=== PATIENT | female | born 1960 | race Caucasian/White ===

== ENCOUNTER 2016-06-14 19:47 | Inpatient (IN) | payer SELFPAY ==
[~2016-06-14] VITALS: Ht 160 cm; Wt 73.0 kg
[2016-06-14 20:03] VITALS: BP 147/88; PULSE 89; RESP 18; TEMP 97.8; O2SAT 95
[2016-06-14] MEDS ORDERED: ONDANSETRON HCL 4 MG/2 ML VIAL IVP ONE (21:00)
[2016-06-14] MEDS ORDERED: SODIUM CHLORIDE 0.9% FLUSH 5 ML FLUSH IVF PRN ×3 (21:00→23:45)
--- NOTE | 2016-06-14 21:03 | PD ---
HPI Chief Complaint: Headache Time Seen by Provider: 20:55 Travel History International Travel<30 days: No Contact w/Intl Traveler<30days: No Traveled to known affect area: No History of Present Illness HPI 56-year-old female presents to the emergency department by private transportation the care of her family for evaluation of headache. Patient had sudden onset severe headache since Monday evening. Headache has been persistent with associated nausea without vomiting. Patient also notes that has developed neck stiffness. Patient states family history of cerebral aneurysm in her mother who underwent successful surgery and her aunt who secondary to bleed. Patient has had no evaluation for cerebral aneurysm with positive family history. Patient denies any chronic medical conditions although occasional migrainous headache but denies frequent tension headache or other headache. Patient does smoke cigarettes and uses [id number] herbal medications. Patient denies any change in mentation but reportedly today children at home noted that she had some mild slurring of her speech which resolved completely. Patient denies any visual disturbance loss of vision double vision denies any difficulty with swallowing denies any upper extremity or lower extremity numbness tingling or weakness of the extremities. Patient has had no balance disturbance. Patient denies any recent febrile illness or respiratory illness. Patient's had poor oral intake due to associated nausea. Patient has missed work 2 days. Patient has used [id number] aspirin and ibuprofen without symptom relief. Patient rates pain "20"/10 in intensity. PFSH Past Medical History Narrative Medical occasional migrainous headaches AB/ectopic 1; 3; tobacco use positive; family history cerebral aneurysm mother and maternal aunt; nursing notes reviewed Diminished Hearing: No Tetanus Vaccination: Unknown Influenza Vaccination: No ?: Not Tubal Ligation: Yes Past Surgical History Section: Yes (x3) Social History Alcohol Use: No Tobacco Use: Yes (1 PPD) Substance Use: No Allergies-Medications (Allergen,Severity, Reaction): Coded Allergies: No Known Allergies (Unverified , 06/14/16) Reported Meds & Prescriptions Reported Meds & Active Scripts Active Reported Ginkoba (Ginkgo Biloba) [address] [place] Wort (Génesis's Wort ([place]f) 150 Mg Tab 150 Mg PO DAILY Narrative Medication génesis's wort Review of Systems Except as stated in HPI: all other systems reviewed are Neg General / Constitutional: No: Fever, Chills Eyes: No: Diploplia, Blurred Vision, Photophobia HENT: Positive: Headaches, Neck Stiffness Cardiovascular: No: Chest Pain or Discomfort, Palpitations Respiratory: No: Shortness of Breath Gastrointestinal: Positive: Nausea, No: Vomiting, Abdominal Pain Genitourinary: No: Flank Pain Musculoskeletal: No: Myalgias, Arthralgias Skin: No Rash Neurologic: Positive: Headache, Slurred Speech (transient --resolved), No: Weakness, Dizziness, Syncope, Focal Abnormalities, Coordination Problem, Change in Mentation, Paresthesia, Seizures Psychiatric: No: Anxiety Endocrine: No: Heat Intolerance Hematologic/Lymphatic: No: Easy Bruising Physical Exam Narrative GENERAL: Well-developed well-nourished female in no acute distress no respiratory distress; GCS 15 SKIN: Warm and dry. HEAD: Atraumatic. Normocephalic. EYES: Pupils equal and round. Extraocular muscles intact. No scleral icterus. No injection or drainage. ENT: No nasal bleeding or discharge. Mucous membranes pink and moist. NECK: Trachea midline. No JVD. Mild discomfort with range of motion but no meningismus no nuchal rigidity. CARDIOVASCULAR: Regular rate and rhythm. RESPIRATORY: No accessory muscle use. Clear to auscultation. Breath sounds equal bilaterally. GASTROINTESTINAL: Abdomen soft, non-tender, nondistended. Hepatic and splenic margins not palpable. MUSCULOSKELETAL: Extremities without clubbing, cyanosis, or edema. No obvious deformities. NEUROLOGICAL: Awake and alert. No obvious cranial nerve deficits. Motor grossly within normal limits. Five out of 5 muscle strength in the arms and legs. DTRs 2+ and equal bilateral upper extremities and lower extremities no clonus. Sensory exam intact. No limb ataxia. No pronator drift. Normal speech. PSYCHIATRIC: Appropriate mood and affect; insight and judgment normal. Data Data Last Documented VS Vital Signs Date Time Temp Pulse Resp B/P Pulse Ox O2 Delivery O2 Flow Rate FiO2 06/15/16 00:06 98.0 79 18 140/87 95 Room Air Orders Complete Blood Count With Diff (06/14/16 20:55) Basic Metabolic Panel (Bmp) (06/14/16 20:55) Prothrombin Time / Inr (Pt) (06/14/16 20:55) Act Partial Throm Time (Ptt) (06/14/16 20:55) Ct Brain W/O Iv Contrast(Rout) (3/7/17 20:55) Ecg Monitoring (06/14/16 20:55) Iv Access Insert/Monitor (06/14/16 20:55) Oximetry (06/14/16 20:55) Sodium Chloride 0.9% Flush (Ns Flush) (06/14/16 21:00) Ondansetron Inj (Zofran Inj) (06/14/16 21:00) Morphine Inj (Morphine Inj) (06/14/16 22:45) Sodium Chlor 0.9% 1000 Ml Inj (Ns 1000 M (06/14/16 22:45) Sodium Chlor 0.9% 250 Ml Inj (Ns 250 Ml (06/14/16 22:45) Csf Cell Count + Differential (06/14/16 23:43) Glucose, Csf (06/14/16 23:43) Total Protein, Csf (06/14/16 23:43) Csf Culture And Gram Stain (06/14/16 23:43) Sodium Chloride 0.9% Flush (Ns Flush) (06/14/16 23:45) Cta Brain W Iv Contrast W 3d (06/14/16 23:43) Sodium Chloride 0.9% Flush (Ns Flush) (06/14/16 23:45) Ondansetron Inj (Zofran Inj) (06/15/16 00:45) Morphine Inj (Morphine Inj) (06/15/16 00:45) Sodium Chlor 0.9% 1000 Ml Inj (Ns 1000 M (06/15/16 00:45) Cta Neck W Iv Contrast W 3d (06/15/16 00:51) Blood Culture (06/15/16 00:59) Lactic Acid (06/15/16 00:59) Ceftriaxone Inj (Rocephin Inj) (06/15/16 01:00) Acyclovir Inj (Zovirax Inj) (06/15/16 01:00) Place In Observation (06/15/16 ) Vital Signs (Adult) Q4H (06/15/16 01:09) Neuro Checks Q4H (06/15/16 01:09) Activity Oob With Assistance (06/15/16 01:09) Diet Heart Healthy (06/15/16 Breakfast) Sodium Chloride 0.9% Flush (Ns Flush) (06/15/16 01:15) Sodium Chloride 0.9% Flush (Ns Flush) (06/15/16 09:00) Basic Metabolic Panel (Bmp) (06/16/16 06:00) Complete Blood Count With Diff (06/16/16 06:00) Case Management Consult (06/15/16 01:09) Naloxone Inj (Narcan Inj) (06/15/16 01:15) Vancomycin Inj (Vancomycin Inj) (06/15/16 01:15) Vancomycin Consult Pharmacy (Vancomycin (06/15/16 01:15) Admit Order (Ed Use Only) (06/15/16 ) ^ Saline Lock (06/15/16 01:11) Resp Oxygen Ethan C Titrat 1-4 L (06/15/16 ) ^ Notify Dr: Other (06/15/16 01:11) Sodium Chloride 0.9% Flush (Ns Flush) (06/15/16 09:00) Sodium Chloride 0.9% Flush (Ns Flush) (06/15/16 01:15) Ampicillin Inj (Ampicillin Inj) (06/15/16 03:00) Ceftriaxone Inj (Rocephin Inj) (06/15/16 13:00) Labs Laboratory Tests Test 06/14/16 06/14/16 06/15/16 20:40 23:40 01:13 White Blood Count 9.2 TH/MM3 Red Blood Count 5.55 MIL/MM3 Hemoglobin 17.3 GM/DL Hematocrit 52.0 % Mean Corpuscular Volume 93.6 FL Mean Corpuscular Hemoglobin 31.2 PG Mean Corpuscular Hemoglobin 33.3 % Concent Red Cell Distribution Width 13.4 % Platelet Count 228 TH/MM3 Mean Platelet Volume 9.3 FL Neutrophils (%) (Auto) 68.7 % Lymphocytes (%) (Auto) 21.7 % Monocytes (%) (Auto) 7.7 % Eosinophils (%) (Auto) 1.3 % Basophils (%) (Auto) 0.6 % Neutrophils # (Auto) 6.3 TH/MM3 Lymphocytes # (Auto) 2.0 TH/MM3 Monocytes # (Auto) 0.7 TH/MM3 Eosinophils # (Auto) 0.1 TH/MM3 Basophils # (Auto) 0.1 TH/MM3 CBC Comment DIFF FINAL Differential Comment Prothrombin Time 11.4 SEC Prothromb Time International 1.0 RATIO Ratio Activated Partial 31.8 SEC Thromboplast Time Sodium Level 140 MEQ/L Potassium Level 3.8 MEQ/L Chloride Level 106 MEQ/L Carbon Dioxide Level 24.4 MEQ/L Anion Gap 10 MEQ/L Blood Urea Nitrogen 15 MG/DL Creatinine 0.67 MG/DL Estimat Glomerular Filtration 91 ML/MIN Rate Random Glucose 100 MG/DL Calcium Level 9.0 MG/DL CSF Volume (Tube 1) 1.8 ML CSF Supernatant Color (tube 1) HEMOLYZED CSF Gross Blood (Tube 1) TRACE CSF Volume (Tube 2) 1.9 ML CSF Supernatant Color (tube 2) CLEAR CSF Gross Blood (Tube 2) 0 CSF Volume (Tube 3) 1.8 ML CSF Supernatant Color (tube 3) CLEAR CSF Gross Blood (Tube 3) 0 CSF Volume (Tube 4) 1.4 ML CSF Supernatant Color (tube 4) CLEAR CSF Gross Blood (Tube 4) 0 CSF WBC (Tube 4) 747 /MM3 CSF RBC (Tube 4) 10 /MM3 CSF Neutrophils 0 % CSF Lymphocytes 93 % CSF Monocytes 5 % CSF Eosinophils 1 % CSF Basophils 1 % CSF Glucose 43 MG/DL CSF Total Protein 270.1 MG/DL Lactic Acid Level 0.5 mmol/L MDM Medical Decision Making Medical Screen Exam Complete: Yes Emergency Medical Condition: Yes Medical Record Reviewed: Yes Interpretation(s) Last Impressions Neck CTA 06/15/16 005 Signed Impressions: Service Date/Time: Wednesday, June 15, 2016 01:33 - CONCLUSION: 1. Cervical vessels are all patent with no significant atherosclerotic disease. 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 Patient is left vertebral dominant. . Colin Damico MD Head CTA 06/14/16 [id number] Signed Impressions: Service Date/Time: Wednesday, June 15, 2016 01:33 - CONCLUSION: 1. Intracranial vessels are all patent without aneurysmal disease. 2. Congenital variation of the posterior Circulation and [place] as above. Colin Damico MD Head CT 06/14/[id number] Signed Impressions: Service Date/Time: Tuesday, June 14, 2016 21:51 - CONCLUSION: Negative noncontrast head CT. 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 At 10:[address] brain noncontrast has been resulted as no acute abnormality no bleed; they will agree to proceed with lumbar puncture. Patient continues to complain of headache pain and administered morphine sulfate after obtaining written and verbal consent to proceed with lumbar puncture and maintenance IV fluids has artery received Zofran 2 mg IV Critical Care Narrative Aggregate critical care time was 40 minutes. Time to perform other separately billable procedures was not included in the critical care time. My time did not include minutes spent treating any other patients simultaneously or on activities that did not directly contribute to the patient's treatment. The services I provided to this patient were to treat and/or prevent clinically significant deterioration that could result in: Intracranial bleed, sepsis, shock, I provided critical care services requiring my management, as noted below: Chart data review, documentation time, medication orders and management, vital sign assessments/reviewing monitor data, ordering and reviewing lab tests, ordering and interpreting/reviewing x-rays and diagnostic studies, care of the patient and discussion of the patient with the admitting physicians. Procedures Procedure Narrative LUMBAR PUNCTURE: The patient was placed in the left lateral decubitus position. The lumbar area of the back was prepped with Betadine and sterilely draped. The L3 -- L4 interspace was infiltrated with 1% lidocaine plain. Number 20 gauge LP needle was placed in the interspace. Opening pressure deferred. Number 7 milliliters of pink tinged that cleared to clear CSF were obtained. Patient tolerated procedure well. Physician Communication Physician Communication parul discussed with Dr Tillman for admission Diagnosis Primary Impression: Cephalgia Qualified Code: G44.52 - New daily persistent headache Additional Impression: Meningitis Admitting Information Admitting Physician Requests: Admit Cari Styles MD Jun 14, 2016 21:03
[2016-06-14 21:10] LABS: AUTOMATED NEUTROPHIL # 6.3 TH/MM3 (1.8-7.7); BASOPHIL # 0.1 TH/MM3 (0-0.2); BASOPHIL % 0.6 % (0.0-2.0); EOSINOPHIL # 0.1 TH/MM3 (0-0.4); EOSINOPHIL % 1.3 % (0.0-4.0); HEMO FLAGS DIFF FINAL; LYMPH % 21.7 % (9.0-44.0); MEAN CELL VOLUME 93.6 FL (80.0-100.0); MEAN CORPUSCULAR HEMOGLOBIN 31.2 PG (27.0-34.0); MEAN CORPUSCULAR HGB CONC 33.3 % (32.0-36.0); MONO % 7.7 % (0.0-8.0); NEUT % 68.7 % (16.0-70.0); PLATELET COUNT 228 TH/MM3 (150-450); RED BLOOD COUNT 5.55 MIL/MM3 (4.00-5.30); RED CELL DISTRIBUTION WIDTH 13.4 % (11.6-17.2); WHITE BLOOD COUNT 9.2 TH/MM3 (4.0-11.0)
[2016-06-14 21:17] LABS: POTASSIUM 3.8 MEQ/L (3.5-5.1)
[2016-06-14 21:20] LABS: BICARBONATE 24.4 MEQ/L (21.0-32.0)
[2016-06-14 21:22] LABS: APTT (PATIENT) 31.8 SEC (24.3-30.1); PROTHROMBIN TIME - PATIENT 11.4 SEC (9.8-11.6)
--- NOTE | 2016-06-14 22:16 | RADHPO ---
EXAM DATE/TIME: 06/14/2016 21:51 [facility] COMPARISON: No previous studies available for comparison. INDICATIONS : Cephalgia. Slurred speech. RADIATION DOSE: 60.19 CTDIvol (mGy) MEDICAL HISTORY : None SURGICAL HISTORY : None. ENCOUNTER: Initial ACUITY: 1 day PAIN SCALE: 10/10 LOCATION: Bilateral cranial TECHNIQUE: Multiple contiguous axial images were obtained of the head. Using automated exposure control and adj ustment of the mA and/or kV according to patient size, radiation dose was kept as low as reasonably a chievable to obtain optimal diagnostic quality images. FINDINGS: CEREBRUM: The ventricles are normal for age. No evidence of midline shift, mass lesion, hemorrhage or acute in farction. No extra-axial fluid collections are seen. POSTERIOR FOSSA: The cerebellum and brainstem are intact. The 4th ventricle is midline. The cerebellopontine angle i s unremarkable. EXTRACRANIAL: The visualized portion of the orbits is intact. SKULL: The calvaria is intact. No evidence of skull fracture. CONCLUSION: Negative noncontrast head CT. Maciel Rm MD on June 14, 2016 at 22:14 Board Certified Radiologist. This report was verified electronically.
[2016-06-14] MEDS ORDERED: SODIUM CHLOR 0.9% 250 ML INJ 250 ML IV ONE (22:45)
[2016-06-14] MEDS ORDERED: MORPHINE SULFATE 4 MG/ML INJ IV PUSH ONE (22:45)
[2016-06-14] MEDS: SODIUM CHLOR 0.9% 1000 ML INJ 1,000 ML IV SCH (22:49)
[2016-06-14 23:45] VITALS: O2SAT 100; O2SAT 94
[2016-06-15] VITALS (22 sets, daily range): BP systolic 110–140; BP diastolic 61–87; PULSE 62–85; RESP 15–25; TEMP 97.6–99; O2SAT 88–96
[2016-06-15 00:31] LABS: VOLUME TUBE # 1 1.8 ML
[2016-06-15 00:34] LABS: SUPERNATE COLOR TUBE #1 HEMOLYZED (CLEAR)
[2016-06-15] MEDS ORDERED: SODIUM CHLOR 0.9% 1000 ML INJ 1,000 ML IV ONE (00:45)
[2016-06-15] MEDS ORDERED: MORPHINE SULFATE 4 MG/ML INJ IV PUSH ONE ×2 (00:45→07:30)
[2016-06-15] MEDS ORDERED: ONDANSETRON HCL 4 MG/2 ML VIAL IV PUSH ONE (00:45)
[2016-06-15 00:51] LABS: GROSS BLOOD TUBE #1 TRACE (0)
[2016-06-15 00:52] LABS: GROSS BLOOD TUBE #2 0 (0); SUPERNATE COLOR TUBE #2 CLEAR (CLEAR); VOLUME TUBE # 2 1.9 ML
[2016-06-15 00:53] LABS: GROSS BLOOD TUBE #3 0 (0); SUPERNATE COLOR TUBE #3 CLEAR (CLEAR); VOLUME TUBE # 3 1.8 ML; VOLUME TUBE # 4 1.4 ML
[2016-06-15 00:54] LABS: GROSS BLOOD TUBE #4 0 (0); SUPERNATE COLOR TUBE #4 CLEAR (CLEAR)
[2016-06-15 00:55] LABS: WBC TUBE #4 747 /MM3 (0-10)
[2016-06-15] MEDS ORDERED: ACYCLOVIR INJ 500 MG in SODIUM CHLORIDE 0.9% INJ 100 ML IV ONE (01:00)
[2016-06-15] MEDS ORDERED: cefTRIAXone INJ 2,000 MG in SODIUM CHLORIDE 0.9% INJ 100 ML IV ONE (01:00)
[2016-06-15] MEDS ORDERED: VANCOMYCIN INJ 1,000 MG in SODIUM CHLOR 0.9% 250 ML INJ 250 ML IV ONE (01:15)
[2016-06-15] MEDS ORDERED: SODIUM CHLORIDE 0.9% FLUSH 5 ML FLUSH FLUSH PRN (01:15)
[2016-06-15] MEDS ORDERED: NALOXONE HCL 0.4 MG/ML AMP IV PRN (01:15)
[2016-06-15] MEDS ORDERED: Vancomycin Consult Pharmacy 1 EA OTHER SCH (01:15)
[2016-06-15] MEDS ORDERED: SODIUM CHLORIDE 0.9% FLUSH 5 ML FLUSH IVF PRN (01:15)
[2016-06-15 01:26] LABS: CSF EOSINOPHILS 1 %; CSF LYMPHOCYTES 93 %; CSF MONOCYTES 5 %; CSF NEUTROPHILS 0 %
[2016-06-15] MEDS ORDERED: ST J150T PO (01:31)
[2016-06-15] MEDS ORDERED: GINK40TA2 (01:32)
[2016-06-15] MEDS ORDERED: IOHEXOL 350 MG/ML 10 ML VIAL (for RAD DIAG) IV ONE (02:30)
--- NOTE | 2016-06-15 02:48 | RADHPO ---
EXAM DATE/TIME: 06/15/2016 01:33 [facility] COMPARISON: No previous studies available for comparison. INDICATIONS : Evaluate for aneurysm. Slurred speech. Cephalgia. IV CONTRAST: 100 cc Omnipaque 350 (iohexol) IV ; Cumulative dose for multiple exams. RADIATION DOSE: 13.30 CTDIvol (mGy) ; Combined studies MEDICAL HISTORY : None SURGICAL HISTORY : None. ENCOUNTER: Initial ACUITY: 1 day PAIN SCALE: 8/10 LOCATION: Bilateral cranial TECHNIQUE: Volumetric scanning was performed using a multi-row detector CT scanner. The data was post processed with a variety of visualization algorithms including full volume maximum intensity projection, multi -planar sliding thin slab reformation, curved planar reformation, and surface rendering techniques. Using automated exposure control and adjustment of the mA and/or kV according to patient size, radiat ion dose was kept as low as reasonably achievable to obtain optimal diagnostic quality images. FINDINGS: There is excellent visualization of the major intracranial arteries out to the second-order branch ve ssels. There is no evidence for aneurysm, vessel truncation or stenosis, and no evidence for vascula r malformation. Patient is left vertebral dominance of the entire posterior circulation is diminutive. The posterior cerebral arteries receive the majority of their supply from the anterior circulation via patent poste rior communicating arteries. The right P1 segment is diminutive but patent. 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 CONCLUSION: 1. Intracranial vessels are all patent without aneurysmal disease. 2. Congenital variation of the posterior Circulation and [place] as above. Colin Damico MD on June 15, 2016 at 2:42 Board Certified Radiologist. This report was verified electronically.
--- NOTE | 2016-06-15 02:50 | RADHPO ---
EXAM DATE/TIME: 06/15/2016 01:33 [facility] COMPARISON: No previous studies available for comparison. INDICATIONS : Evaluate for aneurysm. Slurred speech. Cephalgia. IV CONTRAST: 100 cc Omnipaque 350 (iohexol) IV ; Cumulative dose for multiple exams. RADIATION DOSE: 13.30 CTDIvol (mGy) ; Combined studies MEDICAL HISTORY : None SURGICAL HISTORY : None. ENCOUNTER: Initial ACUITY: 1 day PAIN SCALE: 8/10 LOCATION: Bilateral cranial Elevated flow velocities and ICA/CCA ratios have been found to correlate with increased degrees of vessel stenosis, calculated as percentage of diameter relative to a normal segment of distal ICA/CCA. TECHNIQUE: Volumetric scanning was performed using a multirow detector CT scanner. The data was post processed with a variety of visualization algorithms including full-volume maximum intensity projection, multip lanar sliding thin-slab reformation, curved-planar reformation, and surface-rendering techniques. Us ing automated exposure control and adjustment of the mA and/or kV according to patient size, radiatio n dose was kept as low as reasonably achievable to obtain optimal diagnostic quality images. FINDINGS: AORTIC ARCH: There is a three-vessel origin of the great vessels from the aorta. No evidence of ostial narrowing. RIGHT CAROTID: The common carotid artery is intact. The carotid bulb has a normal configuration without ulceration o r narrowing. The internal carotid artery lumen is smooth without stenosis. The external carotid srinivas ry is intact. LEFT CAROTID: The common carotid artery is intact. The carotid bulb has a normal configuration without ulceration or narrowing. The internal carotid artery lumen is smooth without stenosis. The external carotid ar miguel is intact. VERTEBRALS: Both vertebrals are diminutive. Patient is left vertebral dominant. CONCLUSION: 1. Cervical vessels are all patent with no significant atherosclerotic disease. 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 Patient is left vertebral dominant. . Colin Damico MD on June 15, 2016 at 2:47 Board Certified Radiologist. This report was verified electronically.
[2016-06-15] MEDS ORDERED: AMPICILLIN INJ 2,000 MG in SODIUM CHLORIDE 0.9% INJ 100 ML IV SCH (03:00)
[2016-06-15] MEDS: AMPICILLIN INJ 2,000 MG in SODIUM CHLORIDE 0.9% INJ 100 ML IV SCH ×6 (04:50→23:40)
[2016-06-15] MEDS ORDERED: ACETAMINOPHEN/HYDROcodone 325 MG/5 MG TAB PO ONE (05:00)
[2016-06-15] MEDS: ONDANSETRON HCL 4 MG/2 ML VIAL IV PUSH PRN ×3 (05:26→19:47)
[2016-06-15] MEDS: SODIUM CHLORIDE 0.9% IV SCH ×2 (08:23→17:34)
[2016-06-15] MEDS: ACYCLOVIR IV SCH ×2 (08:23→17:34)
[2016-06-15] MEDS: SODIUM CHLORIDE 0.9% FLUSH 5 ML FLUSH FLUSH SCH ×2 (08:38→19:49)
[2016-06-15] MEDS: SODIUM CHLOR 0.9% 1000 ML INJ 1,000 ML IV SCH ×2 (08:45→19:49)
[2016-06-15] MEDS: SODIUM CHLORIDE 0.9% FLUSH 5 ML FLUSH IVF SCH ×2 (09:00→23:40)
--- NOTE | 2016-06-15 10:29 | HHI.HP ---
HPI Service [facility] Primary Care Physician No Primary Care Physician Admission Diagnosis cephalgia; meningitis Diagnoses: Chief Complaint: Severe headache Neck pain Chills Nausea Travel History International Travel<30 Days: No Contact w/Intl Traveler <30 Da: No Traveled to Known Affected Are: No History of Present Illness This is a 56-year-old female with a previous medical history significant only for migraine headaches who presents to [facility] ED with complaints of severe headache 3 days. Patient states that she developed sudden onset of severe constant headache with associated nausea without vomiting as well as significant neck stiffness which actually kept her home from work on Monday. She reports headache begins in her forehead and runs to the back of her neck. She is associated photophobia. She reports chills at home but no recorded fever. She's had little to no appetite. She denies any associated cough, runny nose, sore throat, chest pain or abdominal pain. She denies any change in her vision including no double or blurry vision. She has no difficulty swallowing and denies any upper or lower extremity paresthesias, balance problems or weakness. She has reports mild slurring of speech which has resolved completely. She has tried to herself with [id number] ibuprofen and aspirin without any benefit. She denies any ill contacts. In the ED patient had lumbar puncture revealing CSF fluid with elevated white count of 747 and total protein of 270. Patient's CSF glucose was 43. Patient had normal white count of 9.2. Lactic acid was also noted to be normal and 0.5. Head CTA showed patent intracranial vessels without aneurysmal disease and a congenital variation of the posterior circulation and [place]. CT of the head was negative. Neck CTA showed no evidence of atherosclerotic disease. Review of Systems Constitutional: COMPLAINS OF: Chills (as stated in history of present illness) , Change in appetite (decreased appetite over the past 3 days due to nausea), DENIES: Fever Endocrine: DENIES: Polydipsia, Polyuria Eyes: DENIES: Blurred vision, Diplopia, Vision loss, Double Vision Ears, nose, mouth, throat: DENIES: Nasal discharge, Throat pain, Running Nose, Sinus Pain, Odynophagia Respiratory: DENIES: Cough, Wheezing, Shortness of breath Cardiovascular: DENIES: Chest pain, Palpitations, Syncope, Dyspnea on Exertion , Lower Extremity Edema Gastrointestinal: COMPLAINS OF: Nausea, Vomiting (single episode of nonbloody vomitus in the ED last night), DENIES: Abdominal pain, Black stools, Bloody stools, Diarrhea, Difficulty Swallowing Genitourinary: DENIES: Urinary frequency, Urgency, Hematuria, Dysuria Musculoskeletal: COMPLAINS OF: Stiffness (neck), Neck pain (severe, nearly all loss of range of motion), DENIES: Joint pain, Joint Swelling, Back pain Integumentary: DENIES: Pruritus, Rash Hematologic/lymphatic: DENIES: Lymphadenopathy Immunologic/allergic: DENIES: Urticaria Neurologic: COMPLAINS OF: Headache (stated in history of present illness), Speech Problems (brief episode of slurred speech, resolved), DENIES: Localized weakness, Paresthesias Psychiatric: DENIES: Anxiety, Confusion, Depression Past Family Social History Past Medical History History of migraine Past Surgical History C-sections 3 Reported Medications Ginkoba (Ginkgo Biloba) [address] [place] Wort (Génesis's Wort ([place]f) 150 Mg Tab 150 Mg PO DAILY Allergies: Coded Allergies: No Known Allergies (Unverified , 06/14/16) Active Ordered Medications Current Medications Medications (Trade) Dose Ordered Sig/Veronica Route Start Time Stop Time Status Last Admin (NS 1000 ml Inj) 1,000 ml @ 100 mls/hr Q10H IV 06/14/16 22:45 06/14/16 22:49 (NS Flush) 2 ml UNSCH PRN FLUSH 06/15/16 01:15 (NS Flush) 2 ml BID FLUSH 06/15/16 09:00 Naloxone HCl 0.4 mg 0.4 mg UNSCH PRN IV 06/15/16 01:15 (Vancomycin Consult Pharmacy) 0 ml @ 0 mls/hr UNSCH OTHER 06/15/16 01:15 (NS Flush) 2 ml BID IVF 06/15/16 09:00 IV Flush 2 ml 2 ml UNSCH PRN IVF 06/15/16 01:15 Ceftriaxone Sodium 2000 mg/ Sodium Chloride 100 ml @ 200 mls/hr Q12H IV 06/15/16 13:00 Acyclovir Sodium 685 mg/Sodium Chloride 100 ml @ 100 mls/hr Q8H IV 06/15/16 09:00 06/15/16 08:23 Vancomycin HCl 1000 mg/Sodium Chloride 250 ml @ 250 mls/hr Q12H IV 06/15/16 14:00 (Ampicillin Inj/ NS Inj) 100 ml @ 400 mls/hr Q4H IV 06/15/16 04:00 06/15/16 07:38 (Zofran Inj) 4 mg Q6HR PRN IV PUSH 06/15/16 05:00 06/15/16 05:26 Miscellaneous Information SPECIFIC LAB TO BE DRAWN:VANCOMYIN TROUGH DATE TO... ONCE ONCE XX 06/16/16 13:45 06/16/16 13:46 Family History Family medical history significant for cerebral aneurysm mother and maternal aunt Also father with diabetes, coronary artery disease and hypertension Social History Patient reports a lengthy history of tobacco use of pack per day starting at the age of 13 She denies any alcohol consumption or illicit drug use Physical Exam Vital Signs Vital Signs Date Time Temp Pulse Resp B/P Pulse Ox O2 Delivery O2 Flow Rate FiO2 06/15/16 08:45 85 16 128/61 94 Nasal Cannula 2 06/15/16 07:02 98.0 77 16 122/66 94 Nasal Cannula 2 06/15/16 07:00 16 94 Room Air 2 06/15/16 06:30 98.0 69 20 117/62 96 Nasal Cannula 2 06/15/16 06:30 18 06/15/16 06:20 88 Nasal Cannula 2 06/15/16 03:00 18 Room Air 06/15/16 03:00 97.6 79 18 133/67 94 Room Air 06/15/16 01:30 77 18 110/65 94 Room Air 06/15/16 00:06 98.0 79 18 140/87 95 Room Air 06/14/16 23:52 18 06/14/16 23:45 100 Room Air 06/14/16 23:45 18 Room Air 06/14/16 20:03 97.8 89 18 147/88 95 Physical Exam GENERAL: This is a well-nourished, well-developed patient, in no apparent distress. SKIN: No rashes, ecchymoses or lesions. Cool and dry. HEAD: Atraumatic. Normocephalic. No temporal or scalp tenderness. EYES: Pupils equal round and reactive. Extraocular motions intact. No scleral icterus. No injection or drainage. ENT: Nose without bleeding, purulent drainage or septal hematoma. Throat without erythema, tonsillar hypertrophy or exudate. Uvula midline. Airway patent. NECK: Trachea midline. No lymphadenopathy. Supple, nontender, no meningeal signs. No nuchal rigidity noted on exam. CARDIOVASCULAR: Regular rate and rhythm without murmurs, gallops, or rubs. RESPIRATORY: Clear to auscultation. Breath sounds equal bilaterally. No wheezes , rales, or rhonchi. GASTROINTESTINAL: Abdomen soft, non-tender, nondistended. No hepato-splenomegaly , or palpable masses. No guarding. MUSCULOSKELETAL: Extremities without clubbing, cyanosis, or edema. No joint tenderness, effusion, or edema noted. No calf tenderness. NEUROLOGICAL: Awake and alert. Cranial nerves II through XII intact. Motor and sensory grossly within normal limits. Five out of 5 muscle strength in all muscle groups. Normal speech. Laboratory Laboratory Tests Test 06/14/16 06/14/16 06/15/16 20:40 23:40 01:13 White Blood Count 9.2 Red Blood Count 5.55 Hemoglobin 17.3 Hematocrit 52.0 Mean Corpuscular Volume 93.6 Mean Corpuscular Hemoglobin 31.2 Mean Corpuscular Hemoglobin 33.3 Concent Red Cell Distribution Width 13.4 Platelet Count 228 Mean Platelet Volume 9.3 Neutrophils (%) (Auto) 68.7 Lymphocytes (%) (Auto) 21.7 Monocytes (%) (Auto) 7.7 Eosinophils (%) (Auto) 1.3 Basophils (%) (Auto) 0.6 Neutrophils # (Auto) 6.3 Lymphocytes # (Auto) 2.0 Monocytes # (Auto) 0.7 Eosinophils # (Auto) 0.1 Basophils # (Auto) 0.1 CBC Comment DIFF FINAL Differential Comment Prothrombin Time 11.4 Prothromb Time International 1.0 Ratio Activated Partial 31.8 Thromboplast Time Sodium Level 140 Potassium Level 3.8 Chloride Level 106 Carbon Dioxide Level 24.4 Anion Gap 10 Blood Urea Nitrogen 15 Creatinine 0.67 Estimat Glomerular Filtration 91 Rate Random Glucose 100 Calcium Level 9.0 CSF Volume (Tube 1) 1.8 CSF Supernatant Color (tube 1) HEMOLYZED CSF Gross Blood (Tube 1) TRACE CSF Volume (Tube 2) 1.9 CSF Supernatant Color (tube 2) CLEAR CSF Gross Blood (Tube 2) 0 CSF Volume (Tube 3) 1.8 CSF Supernatant Color (tube 3) CLEAR CSF Gross Blood (Tube 3) 0 CSF Volume (Tube 4) 1.4 CSF Supernatant Color (tube 4) CLEAR CSF Gross Blood (Tube 4) 0 CSF WBC (Tube 4) 747 CSF RBC (Tube 4) 10 CSF Neutrophils 0 CSF Lymphocytes 93 CSF Monocytes 5 CSF Eosinophils 1 CSF Basophils 1 CSF Glucose 43 CSF Total Protein 270.1 Lactic Acid Level 0.5 Date/Time Procedure Status Source Growth 06/15/16 01:18 Aerobic Blood Culture Received Blood Peripheral Pending 06/15/16 01:18 Anaerobic Blood Culture Received Blood Peripheral Pending 06/14/16 23:40 Gram Stain - Final Resulted Cerebral Spinal Fluid Lumbar Puncture 06/14/16 23:40 CSF Culture Resulted Cerebral Spinal Fluid Lumbar Puncture Pending Result Diagram: 06/14/16203906/14/162039 Imaging Last 24 hours Impressions Neck CTA 06/15/16 0051 Signed Impressions: Service Date/Time: Wednesday, June 15, 2016 01:33 - CONCLUSION: 1. Cervical vessels are all patent with no significant atherosclerotic disease. 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 Patient is left vertebral dominant. . oClin Damico MD Head CTA 06/14/16 2343 Signed Impressions: Service Date/Time: Wednesday, June 15, 2016 01:33 - CONCLUSION: 1. Intracranial vessels are all patent without aneurysmal disease. 2. Congenital variation of the posterior Circulation and [place] as above. Colin Damico MD Head CT 06/14/162054 Signed Impressions: Service Date/Time: Tuesday, June 14, 2016 21:51 - CONCLUSION: Negative noncontrast head CT. Maciel Rm MD Assessment and Plan Assessment and Plan 56-year-old female with a previous medical history significant only for migraine headaches who presents to [facility] ED with complaints of severe headache 3 days. Headache with suspected meningitis - CSF reveals WBCs and protein - CSF gram stain positive for WBCs but no bacteria seen - Consult Infectious disease - continue on empiric tx with IV antibiotics with Ceftriaxone, Vancomycin and Ampicillin - continue on empiric tx with IV Acyclovir - Follow up on blood culture results - IV anti-emetics and pain medication prn - Supportive care - UA with reflex - CXR ordered Transient aphasia - Check brain MRA/MRI Ongoing tobacco use - Strongly encouraged smoking cessation - Nicotine atch offered but declined Polycythemia - Likely related to tobacco use - Again strongly advised on smoking cessation - Recommend follow-up with PCP as an outpatient for further evaluation DVT prophylaxis - SCDs/SAJAN hose Written by Jackie Og PA-C acting as scribe for Dr. Helm on 06/15/16 at 14:08. All or portions of this note were transcribed by scribe [Jackie]. I, Dr. Chika Helm personally performed the history, physical exam, and medical decision making; and confirmed the accuracy of the information in the transcribed note. Authenticated by Dr. Chika Helm on 06/15/16 at 15:11. Jackie Og Jun 15, 2016 10:29 Chika Helm MD Jun 15, 2016 15:12
[2016-06-15] MEDS ORDERED: oxyCODONE/ACETAMINOPHEN 5 MG/325 MG TAB PO PRN (12:15)
[2016-06-15] MEDS: oxyCODONE/ACETAMINOPHEN 10 MG/325 MG TAB PO PRN (12:20)
--- NOTE | 2016-06-15 13:22 | RADHPO ---
EXAM DATE/TIME: 06/15/2016 12:26 [facility] COMPARISON: No previous studies available for comparison. INDICATIONS : Evaluate for pneumonia. MEDICAL HISTORY : None. SURGICAL HISTORY : None. ENCOUNTER: Initial ACUITY: 1 day PAIN SCORE: 0/10 LOCATION: Bilateral chest FINDINGS: PA and lateral views of the chest demonstrate the lungs to be symmetrically aerated without evidence of mass, infiltrate or effusion. The cardiomediastinal contours are unremarkable. Osseous structure s are intact. CONCLUSION: No evidence of acute cardiopulmonary disease. Maciel Rm MD on June 15, 2016 at 13:21 Board Certified Radiologist. This report was verified electronically.
[2016-06-15] MEDS: VANCOMYCIN 1,000 MG/NS 250 ML IV SCH ×4 (14:00→15:24)
[2016-06-15] MEDS: MORPHINE SULFATE 4 MG/ML INJ IV PRN ×3 (14:00→23:44)
[2016-06-15] MEDS: cefTRIAXone INJ 2,000 MG in SODIUM CHLORIDE 0.9% INJ 100 ML IV SCH (14:01)
[2016-06-15] MEDS: PROMETHAZINE HCL 25 MG TAB PO PRN (15:26)
--- NOTE | 2016-06-15 15:41 | MB ---
cc: MAL FINN MD DATE OF CONSULTATION: 06/15/[address] Tillman. REASON FOR CONSULTATION Meningitis. HISTORY OF PRESENT ILLNESS This is a 56-year-old white female who was admitted to the hospital on 06/14/2016 with headache. The patient was brought to the emergency department via son when she continued to have severe headache and was having problems with her speech. She also developed stiffness of the neck as well. The patient started feeling sick approximately 5 days ago. Initially she had a headache and then the next couple of days after that she mostly stayed home and was in bed and two days before admission she started getting chills and continued to have a headache and she was taking Tylenol and aspirin without relief. The headache became worse and she was also having some chills and eventually the son brought her to the hospital when she had problems with speech in addition. She was evaluated in the emergency department and the temperature was normal. White blood cell count was also normal. CT scan of the head was performed and showed no abnormality on the noncontrast scan. CTA was subsequently performed and showed patent intracranial vessels without aneurysmal disease. She mentioned that the headache was very severe. She has been receiving pain medications. Lumbar puncture was performed and the results revealed 747 white cells and 10 red cells and the differential showed 93% lymphocytes. Total protein was not elevated. CSF culture is pending. The gram stain showed many white cells but no bacteria. 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 She denies exposure to sick persons. She has been afebrile. The patient mentioned that she started taking two herbal substances around the day when the headaches began. These were obtained via the internet and she mentioned the names bladderack and another one the name of which she is not entirely sure of. PAST MEDICAL HISTORY 1. History of migraine headaches. 2. x3. MEDICATIONS PRIOR TO ADMISSION 1. Ginkgo biloba. 2. [place]'s Wort. ALLERGIES NO KNOWN DRUG ALLERGIES. CURRENT MEDICATIONS 1. Vancomycin. 2. Ceftriaxone. 3. Madelaine-Colace. 4. Acyclovir. 5. Ampicillin. 6. Percocet p.r.n. SOCIAL HISTORY The patient smokes a pack of cigarettes a day. No alcohol use. No illicit drugs. FAMILY HISTORY Noncontributory. REVIEW OF SYSTEMS Pertinent mentioned in the history of present illness. Otherwise, negative on 10-point review. PHYSICAL EXAMINATION GENERAL: This is a slender well-developed female who is in no acute distress. She is awake and alert and oriented. VITAL SIGNS: Include temperature of 98.4, BP 120/64, respirations 16, heart rate 65. HEENT: The head is atraumatic. Extraocular movements grossly intact, pupils are reactive to light without icterus. Nose without bleeding. Nasal septum is midline. Oropharynx no visible lesions. Mucosa is moist. NECK: Supple without adenopathy. LUNGS: Clear breath sounds bilateral. HEART: Regular rate and rhythm. No murmurs, rubs or gallops. ABDOMEN: Bowel sounds present, soft, no tenderness appreciated. RECTAL: Not performed. EXTREMITIES: No clubbing or cyanosis or edema. NEURO: No gross focal findings. SKIN: No rash. PSYCHE: The patient is calm and cooperative. LABORATORY DATA WBC 9.2, platelets 228, hemoglobin 17.3, 68% neutrophils, 21% lymphocytes, creatinine 0.67, BUN 15, sodium 140. IMPRESSION Meningitis. The patient presents with headache, nausea, vomiting and chills. Cerebrospinal fluid analysis revealed predominantly lymphocytes. The patient likely has viral meningitis based on the CSF findings. She had started taking a new herbal medicines which she ordered via the internet around the time when the headaches began and it is not clear whether this can be implicated with her current illness. RECOMMENDATIONS 1. Monitor CSF cultures. 2. Monitor blood cultures. 3. Once further information becomes available on the cultures, antibiotics can be stopped or adjusted. Thank you for this consultation. The patient's progress will be monitored and further recommendations will be given on followup if necessary. Mal Finn MD FD/ANUM /2:38 PM /3:09 PM ANN
[2016-06-15 19:04] LABS: GLUCOSE,URINE NEG (NEG); KETONE, URINE 15 mg/dL (NEG); NITRITE,URINE NEG (NEG)
[2016-06-15 19:30] LABS: BLOOD, URINE MOD (NEG); URINE COLOR YELLOW (YELLW/STRAW)
[2016-06-15 19:31] LABS: SQUAMOUS EPITHELIAL CELL URINE 0-5 /hpf (0-5); WBC, URINE 15-19 /hpf (0-5)
[2016-06-15 19:32] LABS: BACTERIA, URINE FEW /hpf; COMMENT (UR) CULTURE INDICATED; CULTURE IF INDICATED CULTURE INDICATED
[2016-06-15] MEDS: DOCUSATE SODIUM 50 MG/SENNA 8.6 MG TAB PO SCH (19:49)
[2016-06-16] VITALS (31 sets, daily range): BP systolic 122–162; BP diastolic 69–85; PULSE 56–86; RESP 14–35; TEMP 88.8–98.8; O2SAT 90–95
[2016-06-16] MEDS: cefTRIAXone INJ 2,000 MG in SODIUM CHLORIDE 0.9% INJ 100 ML IV SCH ×2 (00:32→13:38)
[2016-06-16] MEDS: SODIUM CHLORIDE 0.9% IV SCH ×3 (00:33→17:00)
[2016-06-16] MEDS: ACYCLOVIR IV SCH ×3 (00:33→17:00)
[2016-06-16] MEDS: ONDANSETRON HCL 4 MG/2 ML VIAL IV PUSH PRN ×4 (01:54→23:12)
[2016-06-16] MEDS: VANCOMYCIN 1,000 MG/NS 250 ML IV SCH ×6 (02:51→14:00)
[2016-06-16] MEDS: AMPICILLIN INJ 2,000 MG in SODIUM CHLORIDE 0.9% INJ 100 ML IV SCH ×6 (03:38→23:12)
[2016-06-16] MEDS: SODIUM CHLOR 0.9% 1000 ML INJ 1,000 ML IV SCH ×2 (05:52→14:45)
[2016-06-16] MEDS: oxyCODONE/ACETAMINOPHEN 10 MG/325 MG TAB PO PRN ×2 (07:46→14:14)
[2016-06-16] MEDS: DOCUSATE SODIUM 50 MG/SENNA 8.6 MG TAB PO SCH ×2 (07:46→20:15)
[2016-06-16 08:16] LABS: AUTOMATED NEUTROPHIL # 4.3 TH/MM3 (1.8-7.7); BASOPHIL % 0.7 % (0.0-2.0); EOSINOPHIL # 0.1 TH/MM3 (0-0.4); EOSINOPHIL % 1.5 % (0.0-4.0); HEMATOCRIT 42.2 % (35.0-46.0); HEMO FLAGS DIFF FINAL; LYMPH % 29.8 % (9.0-44.0); LYMPHOCYTE # 2.1 TH/MM3 (1.0-4.8); MEAN CELL VOLUME 93.8 FL (80.0-100.0); MEAN CORPUSCULAR HEMOGLOBIN 30.8 PG (27.0-34.0); MEAN CORPUSCULAR HGB CONC 32.8 % (32.0-36.0); MONO % 7.8 % (0.0-8.0); NEUT % 60.2 % (16.0-70.0); PLATELET COUNT 178 TH/MM3 (150-450); RED BLOOD COUNT 4.49 MIL/MM3 (4.00-5.30); RED CELL DISTRIBUTION WIDTH 13.1 % (11.6-17.2)
[2016-06-16 08:28] LABS: POTASSIUM 3.7 MEQ/L (3.5-5.1)
[2016-06-16] MEDS: MORPHINE SULFATE 4 MG/ML INJ IV PRN ×4 (09:26→23:12)
[2016-06-16] MEDS: SODIUM CHLORIDE 0.9% FLUSH 5 ML FLUSH FLUSH SCH ×2 (09:27→20:15)
[2016-06-16] MEDS ORDERED: PHARMACY ORDERED LAB XX ONE (13:45)
[2016-06-16] MEDS ORDERED: GADODIAMIDE PF 287 MG/ML 5 ML VIAL (for RAD MRI) IV ONE (14:14)
[2016-06-16] MEDS: PROMETHAZINE HCL 25 MG TAB PO PRN (14:17)
--- NOTE | 2016-06-16 15:09 | HHI.IDPN ---
Note Infectious Disease Note Patient continues to have nausea and vomiting. Afebrile. Has intermittent KNOWLES which is relieved by pain meds but recurs when pain med weans off. No visual problems. describe pain located at sides and back of the head. MRI result not yet available. PAST MEDICAL HISTORY 1. History of migraine headaches. 2. x3. MEDICATIONS PRIOR TO ADMISSION 1. Ginkgo biloba. 2. [place]'s Wort. ALLERGIES NO KNOWN DRUG ALLERGIES. CURRENT MEDICATIONS 1. Vancomycin. 2. Ceftriaxone. 3. Madelaine-Colace. 4. Acyclovir. 5. Ampicillin. 6. Percocet p.r.n. SOCIAL HISTORY The patient smokes a pack of cigarettes a day. No alcohol use. No illicit drugs. FAMILY HISTORY Noncontributory. PHYSICAL EXAMINATION GENERAL: Patient in mild distress fro nausea and vomiting. She is awake and oriented. HEENT: The head is atraumatic. Extraocular movements grossly intact, pupils are reactive to light without icterus. Nose without bleeding. Nasal septum is midline. Oropharynx no visible lesions. Mucosa is moist. NECK: Supple without adenopathy. LUNGS: Clear breath sounds. HEART: Regular rate and rhythm. No murmurs, rubs or gallops. ABDOMEN: Bowel sounds present, soft, no tenderness appreciated. EXTREMITIES: No clubbing or cyanosis or edema. NEURO: Non focal. CN 2 through 12 intact. SKIN: No rash. PSYCHE: The patient is calm and cooperative. IMPRESSION Meningitis. The patient presents with headache, nausea, vomiting and chills. Cerebrospinal fluid analysis revealed predominantly lymphocytes. Most likely has Viral meningitis. RECOMMENDATIONS 1. Monitor CSF cultures. Will order HSV on CSF - this was not previously ordered. 2. Follow MRA result. 3. Once further information becomes available on the cultures, antibiotics can be stopped or adjusted. 4. Continue meds for KNOWLES and nausea. Needs resolution of these before discharge. Joon Garcia MD Jun 16, 2016 15:09
--- NOTE | 2016-06-16 15:23 | HHI.PR ---
Subjective Remarks Headache is slightly improved. She did have more vomiting and nausea last night but none today. No photophobia. No fevers. Objective Vitals Vital Signs Date Time Temp Pulse Resp B/P Pulse Ox O2 Delivery O2 Flow Rate FiO2 06/16/16 12:30 58 06/16/16 11:30 58 06/16/16 11:00 70 14 136/69 93 06/16/16 10:39 68 06/16/16 10:39 98.5 72 22 142/74 06/16/16 10:39 68 06/16/16 10:30 70 06/16/16 10:11 66 06/16/16 10:11 98.4 66 21 162/75 06/16/16 08:50 60 06/16/16 07:57 60 06/16/16 07:57 98.6 60 18 157/85 06/16/16 06:50 62 06/16/16 06:00 63 06/16/16 05:00 64 06/16/16 04:00 63 06/16/16 03:40 98.8 64 29 125/72 94 06/16/16 03:00 77 06/16/16 02:00 73 06/16/16 01:00 86 06/16/16 00:00 62 06/16/16 00:00 98.8 62 14 136/69 92 06/15/16 23:49 23 06/15/16 23:00 62 06/15/16 22:00 63 06/15/16 21:00 63 06/15/16 20:00 94 21 06/15/16 20:00 77 06/15/16 20:00 99.0 77 15 139/77 92 06/15/16 19:00 63 06/15/16 18:00 76 06/15/16 17:00 70 06/15/16 16:00 98.6 68 25 140/82 06/15/16 16:00 68 I/O 06/15/16 06/15/16 06/15/16 06/16/16 06/16/16 06/16/16 07:00 15:00 23:00 07:00 15:00 23:00 Intake Total 2050 ml 200 ml 2032 ml 1365 ml Balance 2050 ml 200 ml 2032 ml 1365 ml Intake Oral 250 ml 580 ml 360 ml IV Total 1800 ml 200 ml 1452 ml 1005 ml # Voids 1 4 3 # Bowel Movements 0 0 Result Diagram: 06/16/16 0740 06/16/16 0740 Objective Remarks GENERAL: Well-nourished, well-developed patient. SKIN: Warm and dry. HEAD: Normocephalic. EYES: No scleral icterus. No injection or drainage. NECK: Supple, trachea midline. No JVD or lymphadenopathy. CARDIOVASCULAR: Regular rate and rhythm without murmurs, gallops, or rubs. RESPIRATORY: Breath sounds equal bilaterally. No accessory muscle use. GASTROINTESTINAL: Abdomen soft, non-tender, nondistended. EXTREMITIES: No cyanosis, or edema. NEUROLOGICAL: Awake, alert, and oriented x 3. Non-focal. A/P Problem List: (1) Viral meningitis ICD Code: A87.9 Status: Acute Assessment and Plan 56-year-old female with a previous medical history significant only for migraine headaches who presents to [facility] ED with complaints of severe headache 3 days. Headache with suspected bilateral meningitis - CSF reveals elevated WBCs with lymphocyte predominance and protein -Cultures are no growth at 48 hours -HSV CSF PCR pending - CSF gram stain positive for WBCs but no bacteria seen -Appreciate infectious disease - continue on empiric tx with IV antibiotics with Ceftriaxone, Vancomycin and Ampicillin - continue on empiric tx with IV Acyclovir - - IV anti-emetics and pain medication prn Transient aphasia - brain MRA/MRI pending Ongoing tobacco use - Strongly encouraged smoking cessation - Nicotine atch offered but declined Polycythemia - Likely related to tobacco use - Again strongly advised on smoking cessation - Recommend follow-up with PCP as an outpatient for further evaluation DVT prophylaxis - SCDs/SAJAN Chika Howell MD Jun 16, 2016 15:22
--- NOTE | 2016-06-16 16:15 | RADHPO ---
EXAM DATE/TIME: 06/16/2016 14:16 [facility] COMPARISON: No previous studies available for comparison. INDICATIONS : TIA. Headache for one week. MEDICAL HISTORY : None. SURGICAL HISTORY : section. ENCOUNTER: Initial ACUITY: 1 week PAIN SCORE: 8/10 LOCATION: Head. Please note a normal MRA of the brain does not entirely exclude the possibility of a small aneurysm, nor the possibility of distal intracranial vessel disease. TECHNIQUE: 3D time of flight MRA was performed. Source images, multiplanar STS MIP, and 3D volume MIP reconstru ctions were reviewed. FINDINGS: There is excellent visualization of the major intracranial arteries out to the second-order branch ve ssels. The posterior cerebral arteries originate from the anterior circulation. The basilar artery is small and supplied by the left vertebral artery. The right vertebral artery ter minates in PICA. The proximal anterior and posterior circulation vessels are otherwise patent. There is no significant luminal irregularity, stenosis or occlusion. There is no evidence of focal aneurysm. CONCLUSION: origins of the posterior sternal arteries. No evidence of significant vasculopathy, stenosis or occlusive disease. No evidence of aneurysm. Riki Streeter MD on June 16, 2016 at 16:10 Board Certified Radiologist. This report was verified electronically.
--- NOTE | 2016-06-16 16:17 | RADHPO ---
EXAM DATE/TIME: 06/16/2016 14:16 [facility] COMPARISON: No previous studies available for comparison. INDICATIONS : Meningitis. Headache for one week with stiff and painful neck. CONTRAST: 14 cc Omniscan (gadodiamide) IV MEDICAL HISTORY : None. SURGICAL HISTORY : section. ENCOUNTER: Initial ACUITY: 1 week PAIN SCORE: 8/10 LOCATION: Head. TECHNIQUE: Multiplanar, multisequence MRI of the brain was performed both prior to and following the administrat ion of paramagnetic contrast. FINDINGS: CEREBRUM: The ventricles are normal for age. No evidence of midline shift, mass lesion, hemorrhage or acute in farction. No extraaxial fluid collections are seen. The pituitary gland and suprasellar cistern are normal in configuration. WHITE MATTER: No significant signal abnormalities are seen in the white matter. POSTERIOR FOSSA: The cerebellum and brainstem are intact. The 4th ventricle is midline. The cerebellopontine angle is unremarkable. The cerebellar tonsils are normal in position. DIFFUSION IMAGING: No focal areas of restricted diffusion are seen. No evidence of acute infarction. EXTRACRANIAL: The visualized portions of the orbits and paranasal sinuses are unremarkable. POST-CONTRAST: No abnormal areas of parenchymal or dural enhancement. No evidence of blood-brain barrier breakdown. CONCLUSION: No acute disease. Riki Streeter MD on June 16, 2016 at 16:14 Board Certified Radiologist. This report was verified electronically.
[2016-06-17] VITALS (17 sets, daily range): BP systolic 132–166; BP diastolic 86–98; PULSE 50–78; RESP 13–24; TEMP 97.1–98.6; O2SAT 88–97
[2016-06-17] MEDS: SODIUM CHLOR 0.9% 1000 ML INJ 1,000 ML IV SCH ×3 (00:53→21:58)
[2016-06-17] MEDS: SODIUM CHLORIDE 0.9% IV SCH ×3 (00:54→17:13)
[2016-06-17] MEDS: ACYCLOVIR IV SCH ×3 (00:54→17:13)
[2016-06-17] MEDS: cefTRIAXone INJ 2,000 MG in SODIUM CHLORIDE 0.9% INJ 100 ML IV SCH ×2 (00:54→12:07)
[2016-06-17] MEDS: VANCOMYCIN 1,000 MG/NS 250 ML IV SCH ×4 (02:49→12:08)
[2016-06-17] MEDS: AMPICILLIN INJ 2,000 MG in SODIUM CHLORIDE 0.9% INJ 100 ML IV SCH ×3 (04:10→12:07)
[2016-06-17] MEDS: oxyCODONE/ACETAMINOPHEN 10 MG/325 MG TAB PO PRN ×2 (07:38→22:02)
[2016-06-17] MEDS: DOCUSATE SODIUM 50 MG/SENNA 8.6 MG TAB PO SCH ×2 (07:39→21:59)
[2016-06-17] MEDS: MORPHINE SULFATE 4 MG/ML INJ IV PRN ×3 (10:17→17:15)
[2016-06-17] MEDS: ONDANSETRON HCL 4 MG/2 ML VIAL IV PUSH PRN ×2 (10:17→17:15)
[2016-06-17] MEDS: SODIUM CHLORIDE 0.9% FLUSH 5 ML FLUSH FLUSH SCH ×2 (10:18→21:00)
[2016-06-17] MEDS ORDERED: oxyCODONE/ACETAMINOPHEN 7.5 MG/325 MG TAB PO PRN (11:00)
--- NOTE | 2016-06-17 11:06 | HHI.PR ---
Subjective Remarks Follow-up of patient with viral meningitis. Patient reports persistent headache requiring use of when necessary internal/external relief. Does report that Morphine works well for about 2 hours after it is given. Still having significant nausea. She does have an extremity poor appetite and has not been able to eat dinner or breakfast. She denies any vomiting. Objective Vitals Vital Signs Date Time Temp Pulse Resp B/P Pulse Ox O2 Delivery O2 Flow Rate FiO2 06/17/16 06:00 56 06/17/16 05:00 57 06/17/16 04:00 98.4 58 24 138/89 88 06/17/16 04:00 55 06/17/16 03:00 56 06/17/16 02:00 54 06/17/16 01:00 73 06/17/16 00:00 58 06/16/16 23:17 16 06/16/16 23:00 56 06/16/16 23:00 98.8 58 16 122/69 90 06/16/16 22:00 70 06/16/16 21:00 65 06/16/16 20:10 95 21 06/16/16 20:00 63 06/16/16 19:15 98.4 82 35 134/81 90 06/16/16 19:00 63 06/16/16 18:50 66 06/16/16 17:50 58 06/16/16 16:50 68 06/16/16 16:36 62 06/16/16 15:00 74 16 131/72 93 06/16/16 12:50 60 06/16/16 12:30 58 06/16/16 11:30 58 06/16/16 11:00 70 14 136/69 93 I/O 06/16/16 06/16/16 06/16/16 06/17/16 06/17/16 06/17/16 07:00 15:00 23:00 07:00 15:00 23:00 Intake Total 1365 ml 1920 ml 1590 ml Balance 1365 ml 1920 ml 1590 ml Intake Oral 360 ml 670 ml 240 ml IV Total 1005 ml 1250 ml 1350 ml # Voids 3 3 3 # Bowel Movements 0 0 0 Result Diagram: 06/16/16 0740 06/16/16 0740 Imaging Last 48 hours Impressions Head Magnetic Resonance Angiography 06/16/16 0000 Signed Impressions: Service Date/Time: June 14:16 - CONCLUSION: origins of the posterior sternal arteries. No evidence of significant vasculopathy, stenosis or occlusive disease. No evidence of aneurysm. Riki Streeter MD Brain MRI 06/16/16 0000 Signed Impressions: Service Date/Time: June 14:16 - CONCLUSION: No acute disease. Riki Streeter MD Objective Remarks GENERAL: Well-nourished, well-developed patient in NAD. Sleeping in bed, easily arousable. SKIN: Warm and dry. No rash. HEAD: Normocephalic. Atraumatic. EYES: Pupils equal and round. No scleral icterus. No injection or drainage. ENT: No nasal bleeding or discharge. Mucous membranes pink and moist. NECK: Supple. Trachea midline. Good range of motion. No nuchal rigidity appreciated. CARDIOVASCULAR: Regular rate and rhythm. S1, S2 noted. No murmur appreciated. RESPIRATORY: No accessory muscle use. Clear to auscultation. Breath sounds equal bilaterally. GASTROINTESTINAL: Abdomen soft, non-tender, nondistended. Normoactive bowel sounds x4. MUSCULOSKELETAL: No obvious deformities. Extremities without clubbing, cyanosis , or edema. NEUROLOGICAL: Awake and alert. No obvious cranial nerve deficits. Motor grossly within normal limits. 5/5 muscle strength in bilateral upper and lower extremities. Normal speech. PSYCHIATRIC: Appropriate mood and affect; insight and judgment normal. Medications and IVs Current Medications Medications (Trade) Dose Ordered Sig/Veronica Route Start Time Stop Time Status Last Admin (NS 1000 ml Inj) 1,000 ml @ 100 mls/hr Q10H IV 06/14/16 22:45 06/17/16 00:53 (NS Flush) 2 ml UNSCH PRN FLUSH 06/15/16 01:15 (NS Flush) 2 ml BID FLUSH 06/15/16 09:00 06/17/16 10:18 Naloxone HCl 0.4 mg 0.4 mg UNSCH PRN IV 06/15/16 01:15 Pharmacy Profile Note 0 ml @ 0 mls/hr UNSCH OTHER 06/15/16 01:15 Ceftriaxone Sodium 2000 mg/ Sodium Chloride 100 ml @ 200 mls/hr Q12H IV 06/15/16 13:00 06/17/16 00:54 Acyclovir Sodium 685 mg/Sodium Chloride 100 ml @ 100 mls/hr Q8H IV 06/15/16 09:00 06/17/16 07:38 (Ampicillin Inj/ NS Inj) 100 ml @ 400 mls/hr Q4H IV 06/15/16 04:00 06/17/16 07:38 (Zofran Inj) 4 mg Q6HR PRN IV PUSH 06/15/16 05:00 06/17/16 10:17 (Percocet 5-325 Mg) 1 tab Q6H PRN PO 06/15/16 12:15 (Percocet 10-325 Mg) 1 tab Q6H PRN PO 06/15/16 12:15 06/17/16 07:38 (Morphine Inj) 4 mg Q3H PRN IV 06/15/16 12:15 06/17/16 10:17 (Madelaine-Colace) 1 tab BID PO 06/15/16 21:00 06/17/16 07:39 Promethazine HCl 25 mg 25 mg Q6HR PRN PO 06/15/16 15:00 06/16/16 14:17 (Vancomycin Inj/ NS 250 ml Inj) 250 ml @ 250 mls/hr Q12H IV 06/16/16 02:00 06/17/16 02:49 A/P Problem List: (1) Viral meningitis ICD Code: A87.9 Status: Acute Plan: Likely viral, CSF viral studies pending MRA brain reviewed without acute vascular abnormality Transferred to [facility] ID consultation appreciated, continue empiric vancomycin, acyclovir and ceftriaxone. Continue antiemetics for nausea Assessment and Plan 56-year-old female with a previous medical history significant only for migraine headaches who presents to [facility] ED with complaints of severe headache 3 days. Headache and nausea with suspected viral meningitis - Still with persistent headache requiring parenteral narcotics - CSF reveals elevated WBCs with lymphocyte predominance and protein - Cultures are no growth at 72 hours - HSV CSF PCR pending - CSF gram stain positive for WBCs but no bacteria seen - Appreciate infectious disease - continue on empiric tx with IV antibiotics with Ceftriaxone, Vancomycin and Ampicillin - continue on empiric tx with IV Acyclovir - Anti-emetics - continue Zofran IV when necessary, add scheduled Phenergan - pain medication - IV morphine when necessary, Percocet prn Transient aphasia - No further episodes since admission - MRI of the brain, no acute disease appreciated - MRA Brain, no evidence of significant vasculopathy, stenosis or occlusive disease. No evidence of aneurysm. Ongoing tobacco use - Strongly encouraged smoking cessation - Nicotine patch offered but declined Polycythemia - Likely related to tobacco use - Again strongly advised on smoking cessation - Recommend follow-up with PCP as an outpatient for further evaluation DVT prophylaxis - SCDs/SAJAN hose Written by Jackie Og PA-C acting as scribe for Dr. Briceño on 06/17/16 at 11:05. Medical Decision Making Impression and Plan The exam, history, and the medical decision-making described in the above note were completed with the assistance of the mid-level provider. I reviewed and agree with the findings presented. I attest that I had a [id number] encounter with the patient on the same day, and personally performed and documented my assessment and findings in the medical record. Feels better, less pain await cultures Jackie Og Jun 17, 2016 11:06 Natalya Briceño MD Jun 17, 2016 14:30
[2016-06-17] MEDS: PROMETHAZINE HCL 25 MG TAB PO SCH ×3 (12:06→22:01)
[2016-06-17 14:04] LABS: HSV 1,PCR Negative (Negative)
--- NOTE | 2016-06-17 16:04 | HHI.IDPN ---
Note Infectious Disease Note Patient notes that the nausea and vomiting is less. Afebrile. Has intermittent KNOWLES which is relieved by pain meds but recurs when pain med weans off. Feels like the scalp is pulled off and someone is pounding at the head. No visual problems. CSF PCR is positive. PAST MEDICAL HISTORY 1. History of migraine headaches. 2. x3. MEDICATIONS PRIOR TO ADMISSION 1. Ginkgo biloba. 2. [place] Wort. ALLERGIES NO KNOWN DRUG ALLERGIES. CURRENT MEDICATIONS 1. Vancomycin. 2. Ceftriaxone. 3. Ampicillin. 4. Acyclovir. SOCIAL HISTORY The patient smokes a pack of cigarettes a day. No alcohol use. No illicit drugs. FAMILY HISTORY Noncontributory. OBJECTIVE: Vital Signs Date Time Temp Pulse Resp B/P Pulse Ox O2 Delivery O2 Flow Rate FiO2 06/17/16 12:00 98.1 78 18 162/96 96 06/17/16 10:50 56 06/17/16 10:37 58 06/17/16 10:37 98.5 58 20 150/87 06/17/16 09:50 58 06/17/16 08:50 62 06/17/16 07:50 50 06/17/16 07:50 98.6 50 13 132/86 06/17/16 06:50 60 06/17/16 06:00 56 06/17/16 05:00 57 06/17/16 04:00 98.4 58 24 138/89 88 06/17/16 04:00 55 06/17/16 03:00 56 06/17/16 02:00 54 06/17/16 01:00 73 06/17/16 00:00 58 06/16/16 23:17 16 06/16/16 23:00 56 06/16/16 23:00 98.8 58 16 122/69 90 06/16/16 22:00 70 06/16/16 21:00 65 06/16/16 20:10 95 21 06/16/16 20:00 63 06/16/16 19:15 98.4 82 35 134/81 90 06/16/16 19:00 63 06/16/16 18:50 66 06/16/16 17:50 58 06/16/16 16:50 68 06/16/16 16:36 62 3/12/2506/16/16 06/17/16 15:00 23:00 07:00 Intake Total 1920 ml 1590 ml Balance 1920 ml 1590 ml Intake Oral 670 ml 240 ml IV Total 1250 ml 1350 ml # Voids 3 3 # Bowel Movements 0 0 Laboratory Tests Test 06/16/16 07:40 White Blood Count 7.0 TH/MM3 Red Blood Count 4.49 MIL/MM3 Hemoglobin 13.8 GM/DL Hematocrit 42.2 % Mean Corpuscular Volume 93.8 FL Mean Corpuscular Hemoglobin 30.8 PG Mean Corpuscular Hemoglobin 32.8 % Concent Red Cell Distribution Width 13.1 % Platelet Count 178 TH/MM3 Mean Platelet Volume 9.1 FL Neutrophils (%) (Auto) 60.2 % Lymphocytes (%) (Auto) 29.8 % Monocytes (%) (Auto) 7.8 % Eosinophils (%) (Auto) 1.5 % Basophils (%) (Auto) 0.7 % Neutrophils # (Auto) 4.3 TH/MM3 Lymphocytes # (Auto) 2.1 TH/MM3 Monocytes # (Auto) 0.5 TH/MM3 Eosinophils # (Auto) 0.1 TH/MM3 Basophils # (Auto) 0.0 TH/MM3 CBC Comment DIFF FINAL Differential Comment Laboratory Tests Test 06/16/16 07:40 Sodium Level 142 MEQ/L Potassium Level 3.7 MEQ/L Chloride Level 108 MEQ/L Carbon Dioxide Level 29.0 MEQ/L Anion Gap 5 MEQ/L Blood Urea Nitrogen 9 MG/DL Creatinine 0.58 MG/DL Estimat Glomerular Filtration 107 ML/MIN Rate Random Glucose 111 MG/DL Calcium Level 8.1 MG/DL Microbiology Date/Time Procedure Status Source Growth 06/14/16 23:40 Gram Stain - Final Complete Cerebral Spinal Fluid Lumbar Puncture 06/14/16 23:40 CSF Culture - Final Complete Cerebral Spinal Fluid Lumbar Puncture NO GROWTH IN 72 HOURS 06/15/16 01:13 Aerobic Blood Culture - Preliminary Resulted Blood Peripheral NO GROWTH IN 2 DAYS 06/15/16 01:13 Anaerobic Blood Culture - Preliminary Resulted Blood Peripheral NO GROWTH IN 2 DAYS 06/15/16 01:18 Aerobic Blood Culture - Preliminary Resulted Blood Peripheral NO GROWTH IN 2 DAYS 06/15/16 01:18 Anaerobic Blood Culture - Preliminary Resulted Blood Peripheral NO GROWTH IN 2 DAYS 06/15/16 17:50 Urine Culture - Final Complete Urine Clean Catch No growth. PHYSICAL EXAMINATION GENERAL: Patient in mild distress fro nausea and vomiting. She is awake and oriented. HEENT: The head is atraumatic. Extraocular movements grossly intact, pupils are reactive to light without icterus. Oropharynx no visible lesions. Mucosa is moist. NECK: Supple without adenopathy. LUNGS: Clear breath sounds. HEART: Regular rate and rhythm. No murmurs, rubs or gallops. ABDOMEN: Bowel sounds present, soft, no tenderness appreciated. EXTREMITIES: No clubbing or cyanosis or edema. NEURO: Non focal. CN 2 through 12 intact. Speech is fluent. SKIN: No rash. PSYCHE: The patient is calm and cooperative. IMPRESSION Herpes Meningitis. The patient presented with headache, nausea, vomiting and chills. Cerebrospinal fluid analysis revealed predominantly lymphocytes. RECOMMENDATIONS 1. Continue Acyclovir. 2. D/C Vancomycin and Ceftriaxone and ampicillin. 3. She needs 10 - 14 days of the Acyclovir. IV initially and then further determination time to switch to PO with improvement. Discussed with the patient and her son. Joon Garcia MD Jun 17, 2016 16:04
[2016-06-18] VITALS (9 sets, daily range): BP systolic 141–165; BP diastolic 82–94; PULSE 58–87; RESP 16–18; TEMP 98.2–99.4; O2SAT 92–95
[2016-06-18] MEDS: ACYCLOVIR IV SCH ×3 (01:00→17:41)
[2016-06-18] MEDS: SODIUM CHLORIDE 0.9% IV SCH ×3 (01:00→17:41)
[2016-06-18] MEDS: SODIUM CHLOR 0.9% 1000 ML INJ 1,000 ML IV SCH ×2 (04:45→09:56)
[2016-06-18] MEDS: PROMETHAZINE HCL 25 MG TAB PO SCH ×3 (04:45→17:50)
[2016-06-18] MEDS: ONDANSETRON HCL 4 MG/2 ML VIAL IV PUSH PRN (04:46)
[2016-06-18] MEDS: DOCUSATE SODIUM 50 MG/SENNA 8.6 MG TAB PO SCH ×2 (09:00→20:14)
[2016-06-18] MEDS: SODIUM CHLORIDE 0.9% FLUSH 5 ML FLUSH FLUSH SCH ×2 (09:00→20:21)
--- NOTE | 2016-06-18 10:12 | HHI.PR ---
Subjective Remarks Patient seen today in follow-up for HSV meningitis. Tolerating acyclovir IV. Treatment plan discussed with patient at length and questions answered. Headache is better. Patient feels much better Objective Vitals Vital Signs Date Time Temp Pulse Resp B/P Pulse Ox O2 Delivery O2 Flow Rate FiO2 06/18/16 08:00 98.6 59 18 165/90 92 06/18/16 04:58 58 06/18/16 04:06 98.2 61 18 146/84 92 06/18/16 00:06 98.8 76 16 145/85 93 06/17/16 20:06 97.1 69 18 166/92 92 06/17/16 16:00 98.2 60 16 162/98 97 06/17/16 12:00 98.1 78 18 162/96 96 06/17/16 10:50 56 06/17/16 10:37 58 06/17/16 10:37 98.5 58 20 150/87 I/O 06/17/16 06/17/16 06/17/16 06/18/16 06/18/16 06/18/16 07:00 15:00 23:00 07:00 15:00 23:00 Intake Total 1590 ml 360 ml Balance 1590 ml 360 ml Intake Oral 240 ml 360 ml IV Total 1350 ml # Voids 3 5 # Bowel Movements 0 Result Diagram: 06/16/16 0740 06/16/16 0740 Imaging Last Impressions Head Magnetic Resonance Angiography 06/16/16 0000 Signed Impressions: Service Date/Time: June 14:16 - CONCLUSION: origins of the posterior sternal arteries. No evidence of significant vasculopathy, stenosis or occlusive disease. No evidence of aneurysm. Riki Streeter MD Brain MRI 06/16/16 0000 Signed Impressions: Service Date/Time: June 14:16 - CONCLUSION: No acute disease. Riki Streeter MD Neck CTA 06/15/16 0051 Signed Impressions: Service Date/Time: Wednesday, June 15, 2016 01:33 - CONCLUSION: 1. Cervical vessels are all patent with no significant atherosclerotic disease. 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 Patient is left vertebral dominant. . Colin Damico MD Chest X-Ray 06/15/16 0000 Signed Impressions: Service Date/Time: Wednesday, June 15, 2016 12:26 - CONCLUSION: No evidence of acute cardiopulmonary disease. Maciel Rm MD Head CTA 06/14/163 Signed Impressions: Service Date/Time: Wednesday, June 15, 2016 01:33 - CONCLUSION: 1. Intracranial vessels are all patent without aneurysmal disease. 2. Congenital variation of the posterior Circulation and [place] as above. Colin Damico MD Head CT 06/14/162054 Signed Impressions: Service Date/Time: Tuesday, June 14, 2016 21:51 - CONCLUSION: Negative noncontrast head CT. Maciel Rm MD Objective Remarks GENERAL: This is a well-nourished, well-developed patient, in no apparent distress. CARDIOVASCULAR: Regular rate and rhythm without murmurs, gallops, or rubs. RESPIRATORY: Clear to auscultation. Breath sounds equal bilaterally. No wheezes , rales, or rhonchi. GASTROINTESTINAL: Abdomen soft, non-tender, nondistended. Normal active bowel sounds MUSCULOSKELETAL: Extremities without clubbing, cyanosis, or edema. NEURO: Alert & Oriented x4 to person, place, time, situation. 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
[2016-06-19 00:06] VITALS: BP 137/77; PULSE 63; RESP 16; TEMP 97; O2SAT 92
[2016-06-19] MEDS: PROMETHAZINE HCL 25 MG TAB PO SCH ×3 (00:11→12:16)
[2016-06-19] MEDS: SODIUM CHLORIDE 0.9% IV SCH ×3 (00:11→17:25)
[2016-06-19] MEDS: ACYCLOVIR IV SCH ×3 (00:11→17:25)
[2016-06-19] MEDS: SODIUM CHLOR 0.9% 1000 ML INJ 1,000 ML IV SCH ×3 (01:52→23:31)
[2016-06-19 04:06] VITALS: BP 144/93; PULSE 67; RESP 16; TEMP 97.7; O2SAT 94
[2016-06-19] MEDS: oxyCODONE/ACETAMINOPHEN 10 MG/325 MG TAB PO PRN ×3 (04:43→23:30)
[2016-06-19 08:00] VITALS: BP 145/96; PULSE 73; RESP 18; TEMP 95.8; O2SAT 95
[2016-06-19] MEDS: SODIUM CHLORIDE 0.9% FLUSH 5 ML FLUSH FLUSH SCH ×2 (09:00→20:37)
[2016-06-19] MEDS: DOCUSATE SODIUM 50 MG/SENNA 8.6 MG TAB PO SCH ×2 (09:28→21:11)
[2016-06-19 12:00] VITALS: BP 150/91; PULSE 62; RESP 20; TEMP 98.3; O2SAT 96
[2016-06-19 16:00] VITALS: BP 181/89; PULSE 65; RESP 20; TEMP 97.9; O2SAT 95
--- NOTE | 2016-06-19 16:03 | HHI.PR ---
Subjective Remarks Follow-up patient with HSV meningitis. Patient states that she is feels even better today than she did yesterday. Much improved. Last Percocet was yesterday evening. Tolerating diet without nausea or vomiting. No nausea or vomiting. Objective Vitals Vital Signs Date Time Temp Pulse Resp B/P Pulse Ox O2 Delivery O2 Flow Rate FiO2 06/19/16 12:00 98.3 62 20 150/91 96 06/19/16 08:00 95.8 73 18 145/96 95 06/19/16 05:52 18 06/19/16 04:06 97.7 67 16 144/93 94 06/19/16 00:06 97.0 63 16 137/77 92 06/18/16 21:27 20 06/18/16 20:45 99.3 79 16 152/92 92 06/18/16 20:00 80 06/18/16 16:00 98.3 87 18 156/94 93 I/O 06/18/16 06/18/16 06/18/16 06/19/16 06/19/16 06/19/16 07:00 15:00 23:00 07:00 15:00 23:00 Intake Total 840 ml 800 ml 1000 ml Balance 840 ml 800 ml 1000 ml Intake Oral 840 ml 1000 ml IV Total 800 ml # Voids 5 2 2 2 4 # Bowel Movements 2 0 Result Diagram: 06/16/1640 06/16/16 0740 Objective Remarks GENERAL: Well-nourished, well-developed patient in NAD. Sleeping in bed, easily arousable. SKIN: Warm and dry. No rash. HEAD: Normocephalic. Atraumatic. CARDIOVASCULAR: Regular rate and rhythm. S1, S2 noted. No murmur appreciated. RESPIRATORY: No accessory muscle use. Clear to auscultation. Breath sounds equal bilaterally. GASTROINTESTINAL: Abdomen soft, non-tender, nondistended. Normoactive bowel sounds x4. MUSCULOSKELETAL: Extremities without clubbing, cyanosis, or edema. NEUROLOGICAL: Awake and alert. No obvious cranial nerve deficits. Motor grossly within normal limits. 5/5 muscle strength in bilateral upper and lower extremities. Normal speech. PSYCHIATRIC: Appropriate mood and affect; insight and judgment normal. Medications and IVs Current Medications Medications (Trade) Dose Ordered Sig/Veronica Route Start Time Stop Time Status Last Admin (NS 1000 ml Inj) 1,000 ml @ 100 mls/hr Q10H IV 06/14/16 22:45 06/19/16 12:17 (NS Flush) 2 ml UNSCH PRN FLUSH 06/15/16 01:15 (NS Flush) 2 ml BID FLUSH 06/15/16 09:00 06/18/16 20:21 Naloxone HCl 0.4 mg 0.4 mg UNSCH PRN IV 06/15/16 01:15 (Zovirax Inj/NS Inj) 100 ml @ 100 mls/hr Q8H IV 06/15/16 09:00 06/19/16 09:27 (Zofran Inj) 4 mg Q6HR PRN IV PUSH 06/15/16 05:00 06/18/16 04:46 (Percocet 5-325 Mg) 1 tab Q6H PRN PO 06/15/16 12:15 06/18/16 20:21 (Percocet 10-325 Mg) 1 tab Q6H PRN PO 06/15/16 12:15 06/19/16 14:17 (Morphine Inj) 4 mg Q3H PRN IV 06/15/16 12:15 06/17/16 17:15 (Madelaine-Colace) 1 tab BID PO 06/15/16 21:00 06/19/16 09:28 (Phenergan) 25 mg Q6HR PO 06/17/16 12:00 06/19/16 12:16 A/P Problem List: (1) Viral meningitis ICD Code: A87.9 Status: Acute Assessment and Plan 56-year-old female with a previous medical history significant only for migraine headaches who presents to [facility] ED with complaints of severe headache 3 days. 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 No evidence of aneurysm. Ongoing tobacco use - Strongly encouraged smoking cessation - Nicotine patch offered but declined DVT prophylaxis - SCDs/SAJAN velasquez Discussed with Dr. Briceño. Jackie Og Jun 19, 2016 16:02
[2016-06-19 20:00] VITALS: BP 186/95; PULSE 70; PULSE 88; RESP 18; TEMP 98.9; O2SAT 95
[2016-06-20] VITALS: BP 181/94; PULSE 69; RESP 18; TEMP 96.5; O2SAT 96
[2016-06-20] MEDS: SODIUM CHLORIDE 0.9% IV SCH ×2 (01:04→09:49)
[2016-06-20] MEDS: ACYCLOVIR IV SCH ×2 (01:04→09:49)
[2016-06-20 04:00] VITALS: BP 151/86; PULSE 66; RESP 18; TEMP 97.1; O2SAT 98
[2016-06-20 08:00] VITALS: BP_SYST 160; BP_SYST 163; BP_DIAS 104; BP_DIAS 90; PULSE 69; PULSE 84; RESP 18; TEMP 97.8; O2SAT 95
--- NOTE | 2016-06-20 08:21 | HHI.PR ---
Subjective Remarks Follow-up HSV meningitis 06/20/16-patient seen and examined; denies any headaches. Currently afebrile Objective Vitals Vital Signs Date Time Temp Pulse Resp B/P Pulse Ox O2 Delivery O2 Flow Rate FiO2 06/20/16 04:00 97.1 66 18 151/86 98 06/20/16 01:01 18 06/20/16 00:00 96.5 69 18 181/94 96 06/19/16 20:00 88 06/19/16 20:00 98.9 70 18 186/95 95 06/19/16 16:00 97.9 65 20 181/89 95 06/19/16 12:00 98.3 62 20 150/91 96 I/O 06/19/16 06/19/16 06/19/16 06/20/16 06/20/16 06/20/16 07:00 15:00 23:00 07:00 15:00 23:00 Intake Total 1000 ml 1563 ml 240 ml Balance 1000 ml 1563 ml 240 ml Intake Oral 1000 ml 240 ml IV Total 1563 ml # Voids 2 4 3 # Bowel Movements 0 0 Result Diagram: 06/16/16 0740 06/16/16 0740 Imaging Last Impressions Head Magnetic Resonance Angiography 06/16/16 0000 Signed Impressions: Service Date/Time: June 14:16 - CONCLUSION: origins of the posterior sternal arteries. No evidence of significant vasculopathy, stenosis or occlusive disease. No evidence of aneurysm. Riki Streeter MD Brain MRI 06/16/16 0000 Signed Impressions: Service Date/Time: June 14:16 - CONCLUSION: No acute disease. Riki Streeter MD Neck CTA 06/15/16 0051 Signed Impressions: Service Date/Time: Wednesday, June 15, 2016 01:33 - CONCLUSION: 1. Cervical vessels are all patent with no significant atherosclerotic disease. 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 Patient is left vertebral dominant. . Colin Damico MD Chest X-Ray 06/15/16 0000 Signed Impressions: Service Date/Time: Wednesday, June 15, 2016 12:26 - CONCLUSION: No evidence of acute cardiopulmonary disease. Maciel Rm MD Head CTA 06/14/16 2343 Signed Impressions: Service Date/Time: Wednesday, June 15, 2016 01:33 - CONCLUSION: 1. Intracranial vessels are all patent without aneurysmal disease. 2. Congenital variation of the posterior Circulation and [place] as above. Colin Damico MD Head CT 06/14/162054 Signed Impressions: Service Date/Time: Tuesday, June 14, 2016 21:51 - CONCLUSION: Negative noncontrast head CT. Maciel Rm MD Objective Remarks GENERAL: NAD SKIN: Warm and dry. HEAD: Normocephalic. EYES: No scleral icterus. No injection or drainage. NECK: Supple, trachea midline. No JVD or lymphadenopathy. CARDIOVASCULAR: Regular rate and rhythm without murmurs, gallops, or rubs. RESPIRATORY: Breath sounds equal bilaterally. No accessory muscle use. GASTROINTESTINAL: Abdomen soft, non-tender, nondistended. MUSCULOSKELETAL: No cyanosis, or edema. BACK: Nontender without obvious deformity. No CVA tenderness. 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 Currently on IV acyclovir 10-14 days duration treatment however will switch now to by mouth acyclovir 800 mg 5 times 10 more days. Appreciate input from ID. Headache: Secondary to HSV meningitis ;treat as such. 2-Transient aphasia - MRI of the brain, no acute disease appreciated - MRA Brain, no evidence of significant vasculopathy, stenosis or occlusive disease. No evidence of aneurysm. 3-Tobacco abuse: Counseled to quit, continue nicotine patch DVT prophylaxis: Bilateral RAPHAELs Omar Chou MD Jun 20, 2016 08:21
[2016-06-20] MEDS: SODIUM CHLORIDE 0.9% FLUSH 5 ML FLUSH FLUSH SCH (09:00)
[2016-06-20] MEDS: SODIUM CHLOR 0.9% 1000 ML INJ 1,000 ML IV SCH (09:49)
[2016-06-20] MEDS: DOCUSATE SODIUM 50 MG/SENNA 8.6 MG TAB PO SCH (09:50)
[2016-06-20] MEDS ORDERED: ACYC-101 PO (10:27)
--- NOTE | 2016-06-20 10:34 | HHI.DS ---
Discharge Summary Admission Date Jun 15, 2016 at 15:01 Discharge Date: Jun 20, 2016 Admitting Diagnosis cephalgia; meningitis (1) Viral meningitis ICD Code: A87.9 Procedures None Brief History - From Admission This is a 56-year-old female with a previous medical history significant only for migraine headaches who presents to [facility] ED with complaints of severe headache 3 days. Patient states that she developed sudden onset of severe constant headache with associated nausea without vomiting as well as significant neck stiffness which actually kept her home from work on Monday. She reports headache begins in her forehead and runs to the back of her neck. She is associated photophobia. She reports chills at home but no recorded fever. She's had little to no appetite. She denies any associated cough, runny nose, sore throat, chest pain or abdominal pain. She denies any change in her vision including no double or blurry vision. She has no difficulty swallowing and denies any upper or lower extremity paresthesias, balance problems or weakness. She has reports mild slurring of speech which has resolved completely. She has tried to herself with [id number] ibuprofen and aspirin without any benefit. She denies any ill contacts. In the ED patient had lumbar puncture revealing CSF fluid with elevated white count of 747 and total protein of 270. Patient's CSF glucose was 43. Patient had normal white count of 9.2. Lactic acid was also noted to be normal and 0.5. Head CTA showed patent intracranial vessels without aneurysmal disease and a congenital variation of the posterior circulation and [place]. CT of the head was negative. Neck CTA showed no evidence of atherosclerotic disease. CBC/BMP: 06/16/16 0740 06/16/16 0740 Imaging Last Impressions Head Magnetic Resonance Angiography 06/16/16 0000 Signed Impressions: Service Date/Time: June 14:16 - CONCLUSION: origins of the posterior sternal arteries. No evidence of significant vasculopathy, stenosis or occlusive disease. No evidence of aneurysm. Riki Streeter MD Brain MRI 06/16/16 0000 Signed Impressions: Service Date/Time: June 14:16 - CONCLUSION: No acute disease. Riki Streeter MD Neck CTA 06/15/16 0051 Signed Impressions: Service Date/Time: Wednesday, June 15, 2016 01:33 - CONCLUSION: 1. Cervical vessels are all patent with no significant atherosclerotic disease. 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 Patient is left vertebral dominant. . Colin Damico MD Chest X-Ray 06/15/16 0000 Signed Impressions: Service Date/Time: Wednesday, June 15, 2016 12:26 - CONCLUSION: No evidence of acute cardiopulmonary disease. Maciel Rm MD Head CTA 06/14/16 2343 Signed Impressions: Service Date/Time: Wednesday, June 15, 2016 01:33 - CONCLUSION: 1. Intracranial vessels are all patent without aneurysmal disease. 2. Congenital variation of the posterior Circulation and [place] as above. Colin Damico MD Head CT 06/14/162054 Signed Impressions: Service Date/Time: Tuesday, June 14, 2016 21:51 - CONCLUSION: Negative noncontrast head CT. Maciel Rm MD PE at Discharge GENERAL: NAD SKIN: Warm and dry. HEAD: Normocephalic. EYES: No scleral icterus. No injection or drainage. NECK: Supple, trachea midline. No JVD or lymphadenopathy. CARDIOVASCULAR: Regular rate and rhythm without murmurs, gallops, or rubs. RESPIRATORY: Breath sounds equal bilaterally. No accessory muscle use. GASTROINTESTINAL: Abdomen soft, non-tender, nondistended. MUSCULOSKELETAL: No cyanosis, or edema. BACK: Nontender without obvious deformity. No CVA tenderness. 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 Her condition improved prior to discharge. Pain medication was managed accordingly and her symptoms of headaches resolved. DVT and GI prophylaxis were provided. Pt Condition on Discharge: Stable Discharge Disposition: Discharge Home Discharge Time: <= 30 minutes Discharge Instructions DIET: Follow Instructions for: Heart Healthy Diet Activities you can perform: Regular-No Restrictions Follow up Referrals: PCP Follow-up - 1 Week New Medications: Acyclovir (Zovirax) 800 Mg Tab 800 MG PO 5 TIMES A DAY Mgmt Viral Infection #50 Ref 0 TAB Ibuprofen (Ibuprofen) 400 Mg Tab 400 MG PO Q8H PRN Control Inflammation #10 Ref 0 TAB Continued Medications: Ginkgo Biloba (Ginkoba) 40 Mg Tab Génesis's Wort ([place] Perf ([place] Wort) 150 Mg Tab 150 MG PO DAILY Control Depression #30 Ref 0 TAB Omar Chou MD Jun 20, 2016 10:34
[2016-06-20] MEDS ORDERED: IBUP400T20 PO (11:38)
== END 2016-06-20 11:57 | disposition home or self-care (01) | DRG 75 ==
LOC: PHED 19:47 → PHEDA 06-15 01:15 → INTOOBSV 06-15 01:15 → PHEDH 06-15 05:15 → PHICU 06-15 10:30 → OBSVTOIN 06-15 15:01 → PH3A 06-17 11:23
PROVIDERS: ADMIT Hospitalist; ATTEND Hospitalist
PROC: 009U3ZX Drainage of Spinal Canal, Percutaneous Approach, Diagnostic (ICD-10-PCS; principal; 2016-06-15)
DX: B00.3 Herpesviral meningitis (principal); R47.01 Aphasia; D75.1 Secondary polycythemia; F17.210 Nicotine dependence, cigarettes, uncomplicated; G43.909 Migraine, unspecified, not intractable, without status migrainosus; Z83.3 Family history of diabetes mellitus; Z82.49 Family history of ischemic heart disease and other diseases of the circulatory system; Z84.89 Family history of other specified conditions
CPT/HCPCS: 62270; 70450; 70496; 70498; 70544; 70553; 71020; 80048; 80202; 81001; 82945; 83605; 84157; 85025; 85610; 85730; 87040; 87070; 87086; 87205; 87529; 89051; 96361; 96374; 96375; 96376; A9579; J0133; J0290; J0696; J2270; J2405; J3370; J7030; J7050; Q0169; Q9967